=== PATIENT | male | born 1960 | race Caucasian/White ===

== ENCOUNTER 2021-05-04 13:01 | Inpatient (IN) ==
[2021-05-04] MEDS ORDERED: Isovue-370 500 ML BOTTLE IVP ONE ×2 (15:50→20:28)
[2021-05-04 16:01] LABS: Basophils # 0.1 K/mcL (0.0-0.2); Basophils % 0.5 %; Eosinophils # 0.2 K/mcL (0.0-0.6); Eosinophils % 2.6 %; Hematocrit 46.1 % (37.5-50.1); Hemoglobin 14.8 g/dL (12.9-16.9); Immature Granulocytes % 0.4 % (0-4); Lymphocytes # 2.1 K/mcL (0.6-4.6); Lymphocytes % 22.5 %; Mean Corpuscular HGB Conc 32.1 g/dL (31.6-35.5); Mean Corpuscular Volume 93.3 fL (83.0-100.0); Mean Platelet Volume 10.2 fL (9.4-12.4); Monocytes # 0.6 K/mcL (0.0-1.3); Monocytes % 6.6 %; Neutrophils # 6.2 K/mcL (1.6-8.9); Platelet Count 248 K/mcL (140-400); Red Blood Count 4.94 M/mcL (4.19-5.50); Red Cell Distribution Width 13.6 % (11.5-14.5); Segmented Neutrophils % 67.4 %; White Blood Count 9.2 K/mcL (4.3-11.1)
[2021-05-04 16:19] LABS: Alanine Aminotransferase 7 Units/L (7-52); Albumin/Globulin Ratio 1.3 (1.1-2.2); Alkaline Phosphatase 93 Units/L (34-104); Aspartate Amino Transferase 11 Units/L (13-39); BUN/Creatinine Ratio 13 (6-26); Bilirubin,Direct 0.1 mg/dL (0.0-0.2); Bilirubin,Indirect 0.2 mg/dL (0.0-1.0); Bilirubin,Total 0.3 mg/dL (0.3-1.0); Blood Urea Nitrogen 10 mg/dL (8-23); Calcium 9.3 mg/dL (8.6-10.3); Carbon Dioxide 30 mEq/L (23-29); Chloride 104 mEq/L (98-107); Glucose 103 mg/dL (70-105); Osmolality,Calculated 289 (280-300); Potassium 4.4 mEq/L (3.5-5.1); Sodium 140 mEq/L (136-145); Troponin I < 0.03 ng/mL (< 0.04); eGFR For African Americans > 60 (> 60); eGFR For Non-African Americans > 60 (> 60)
[2021-05-04] MEDS ORDERED: levoFLOXacin 750 MG/150 ML 750 MG/150 ML BAG IVPB ONE (18:00)
[2021-05-04 20:17] LABS: INR 28.7
[2021-05-04] MEDS ORDERED: [UNRECOGNIZED DRUG - OTHER] IVPB ONE (20:22)
[2021-05-04] MEDS ORDERED: HUM PROTHROMBIN CPLX IVPB ONE (20:22)
[2021-05-04] MEDS ORDERED: WATER FOR INJ IVPB ONE (20:22)
[2021-05-04] MEDS ORDERED: Acetaminophen 325 MG TABLET PO PRN (23:31)
[2021-05-04] MEDS ORDERED: Ondansetron 4 MG/2 ML VIAL IVP PRN (23:31)
[2021-05-04] MEDS ORDERED: Naloxone 0.4 MG/ML INJ IVP PRN (23:31)
[2021-05-04] MEDS ORDERED: *HR* Labetalol 20 MG/4 ML SYRINGE IVP ONE (23:33)
[2021-05-04] MEDS ORDERED: *HR* Dextrose 50 % in Water (Vial) 50 ML VIAL IVP PRN (23:49)
[2021-05-04] MEDS ORDERED: Dextrose Gel 15 GM/37.5 ML TUBE PO PRN ×2 (23:49)
[2021-05-04] MEDS ORDERED: D5% in Water 1,000 ML IVC PRN (23:49)
[2021-05-05] MEDS: *HR* OxyCODONE/APAP 7.5/325 TABLET PO PRN ×3 (00:25→18:05)
[2021-05-05] MEDS: Insulin LISPRO 300 UNITS/3 ML VIAL SUBQ SCH ×4 (00:26→17:27)
[2021-05-05 04:02] LABS: Basophils % 0.4 %; Eosinophils # 0.3 K/mcL (0.0-0.6); Eosinophils % 3.5 %; Hemoglobin 13.8 g/dL (12.9-16.9); Immature Granulocytes % 0.2 % (0-4); Lymphocytes # 2.4 K/mcL (0.6-4.6); Lymphocytes % 30.1 %; Mean Corpuscular HGB Conc 32.9 g/dL (31.6-35.5); Mean Corpuscular Volume 94.4 fL (83.0-100.0); Mean Platelet Volume 10.4 fL (9.4-12.4); Monocytes # 0.6 K/mcL (0.0-1.3); Monocytes % 7.9 %; Neutrophils # 4.7 K/mcL (1.6-8.9); Platelet Count 210 K/mcL (140-400); Red Blood Count 4.45 M/mcL (4.19-5.50); Red Cell Distribution Width 13.5 % (11.5-14.5); Segmented Neutrophils % 57.9 %; White Blood Count 8.1 K/mcL (4.3-11.1)
[2021-05-05 04:14] LABS: Activated Partial Thrombo Time 42.4 Seconds (26.0-36.0); INR 1.1; Prothrombin Time 13.1 Seconds (9.4-12.1)
[2021-05-05 04:18] LABS: BUN/Creatinine Ratio 12 (6-26); Blood Urea Nitrogen 9 mg/dL (8-23); Calcium 8.9 mg/dL (8.6-10.3); Carbon Dioxide 30 mEq/L (23-29); Chloride 104 mEq/L (98-107); Glucose 108 mg/dL (70-105); Magnesium 1.8 mg/dL (1.6-2.6); Osmolality,Calculated 287 (280-300); Phosphorous 3.1 mg/dL (2.7-4.5); Potassium 4.2 mEq/L (3.5-5.1); Sodium 139 mEq/L (136-145); eGFR For African Americans > 60 (> 60); eGFR For Non-African Americans > 60 (> 60)
[2021-05-05 05:57] LABS: Hematocrit 40.7 % (37.5-50.1); Hemoglobin 12.8 g/dL (12.9-16.9)
[2021-05-05] MEDS ORDERED: VILANTEROL IH SCH (09:00)
[2021-05-05] MEDS ORDERED: FLUTICASONE IH SCH (09:00)
[2021-05-05] MEDS: Budesonide/Formoterol 80/4.5 1 PUFF INH IH SCH ×2 (11:23→21:08)
[2021-05-05 12:19] LABS: Hematocrit 42.1 % (37.5-50.1); Hemoglobin 13.6 g/dL (12.9-16.9)
[2021-05-05] MEDS: Gabapentin 400 MG CAPSULE PO SCH ×3 (14:19→21:02)
[2021-05-05] MEDS: (Doxepin Hcl 10 MG Capsule) PO SCH (14:19)
[2021-05-05] MEDS: levoFLOXacin 500 MG TABLET PO SCH (14:28)
[2021-05-05] MEDS: metroNIDAZOLE 500 MG TABLET PO SCH ×2 (14:28→21:07)
[2021-05-05 16:07] LABS: Prothrombin Time 301.9 Seconds (9.4-12.1)
[2021-05-05] MEDS ORDERED: Insulin LISPRO 300 UNITS/3 ML VIAL SUBQ SCH (21:00)
[2021-05-06 05:29] VITALS: BP 118/68; PULSE 67; TEMP 98.4
[2021-05-06 06:26] LABS: Hematocrit 43.4 % (37.5-50.1); Hemoglobin 13.8 g/dL (12.9-16.9)
[2021-05-06 07:06] LABS: INR 1.1; Prothrombin Time 12.4 Seconds (9.4-12.1)
[2021-05-06] MEDS: Budesonide/Formoterol 80/4.5 1 PUFF INH IH SCH (07:20)
[2021-05-06 07:22] VITALS: O2SAT 95
[2021-05-06 07:47] LABS: Basophils % 0.5 %; Eosinophils # 0.3 K/mcL (0.0-0.6); Eosinophils % 3.6 %; Hemoglobin 13.2 g/dL (12.9-16.9); Immature Granulocytes % 0.1 % (0-4); Lymphocytes # 1.9 K/mcL (0.6-4.6); Lymphocytes % 25.4 %; Mean Corpuscular HGB Conc 32.2 g/dL (31.6-35.5); Mean Corpuscular Volume 96.2 fL (83.0-100.0); Mean Platelet Volume 10.2 fL (9.4-12.4); Monocytes # 0.6 K/mcL (0.0-1.3); Monocytes % 7.4 %; Neutrophils # 4.7 K/mcL (1.6-8.9); Platelet Count 223 K/mcL (140-400); Red Blood Count 4.26 M/mcL (4.19-5.50); Red Cell Distribution Width 13.5 % (11.5-14.5); White Blood Count 7.5 K/mcL (4.3-11.1)
[2021-05-06] MEDS: Insulin LISPRO 300 UNITS/3 ML VIAL SUBQ SCH (09:55)
[2021-05-06] MEDS: (Doxepin Hcl 10 MG Capsule) PO SCH (09:56)
[2021-05-06] MEDS: metroNIDAZOLE 500 MG TABLET PO SCH (09:56)
[2021-05-06] MEDS: levoFLOXacin 500 MG TABLET PO SCH (09:56)
[2021-05-06] MEDS: Gabapentin 400 MG CAPSULE PO SCH (09:56)
[2021-05-06 10:54] LABS: Chloride 104 mEq/L (98-107); Glucose 99 mg/dL (70-105); Potassium 4.4 mEq/L (3.5-5.1); Sodium 138 mEq/L (136-145)
[2021-05-06 16:29] LABS: BUN/Creatinine Ratio 16 (6-26); Blood Urea Nitrogen 12 mg/dL (8-23); Carbon Dioxide 27 mEq/L (23-29); Osmolality,Calculated 289 (280-300); eGFR For African Americans > 60 (> 60); eGFR For Non-African Americans > 60 (> 60)
== END 2021-05-06 11:32 | disposition home or self-care (01) | DRG 204 ==
LOC: CDU 13:01 → EMEROOARM 13:01 → SUATTDRO 22:27 → OBSVTOIN 22:27 → CDU 23:20
PROVIDERS: ADMIT Family Medicine; ATTEND Internal Medicine